=== PATIENT | female | born 1970 | race Caucasian/White ===

== ENCOUNTER 2017-12-05 09:02 | Emergency (ER) | payer OTHER ==
[~2017-12-05] VITALS: Ht 157.5 cm; Wt 52.2 kg
--- OUTSIDE RECORDS SUMMARY | 2017-12-05 09:04 | XMS REPORT | Summary of Care ---
Author Author RODGER Lemos, PEDRO Organization Unknown Address Unknown Phone Unavailable Care Team Providers Care Finance Professor Name Role Phone LUIS ALBERTO MERCEDES M.D. Unavailable Unavailable PEDRO FAJARDO M.D. Unavailable Unavailable Pedro Fajardo MD Unavailable Unavailable Unavailable Unavailable Functional Status Name Dates Details Functional status health issues are not documented Status: Name Dates Details Cognitive status health issues are not documented Status: Problems Name Dates Details Elbow pain (719.42, M25.529) Status: Active Allergic rhinitis, seasonal (477.9, J30.2) Status: Active Endometrial hyperplasia (621.30, N85.00) Status: Active Choking sensation (784.99, R09.89) Status: Active Post-operative pain (338.18, G89.18) Status: Active Dysuria (788.1, R30.0) Status: Active Screening mammogram, encounter for (V76.12, Z12.31) Status: Active Screening for osteoporosis (V82.81, Z13.820) Status: Active Estrogen deficiency (256.39, E28.39) Status: Active Premature menopause (256.31, E28.319) Status: Active Osteoporosis (733.00, M81.0) Status: Active Chest wall pain (786.52, R07.89) Status: Active Postmenopausal symptoms (627.9, N95.9) Status: Active Osteopenia (733.90, M85.80) Status: Active Chest pain (786.50, R07.9) Status: Active Anxiety (300.00, F41.9) Status: Active HTN (hypertension), benign (401.1, I10) Status: Active Medications Name Dates Details Womens 50+ Multi Vitamin/Min Oral Tablet * Start : 28-Oct-2016 Active Estradiol 1 MG Oral Tablet TAKE 1 TABLET DAILY * Quantity: 30 Refills: 5 LUIS ALBERTO MERCEDES M.D. * Start : 27-Jan-2017 Active Nicolette Low Dose 81 MG Oral Tablet Delayed Release TAKE 1 TABLET DAILY. * Refills: 0 * Start : 15-Oct-2017 Active CoQ10 400 MG Oral Capsule * Refills: 0 * Start : 15-Oct-2017 Active ALPRAZolam 1 MG Oral Tablet TAKE ONE TABLET BY MOUTH TWICE A DAY NEEDED FOR ANXIETY * Quantity: 12 Refills: 2 JONAH FAJARDO M.D.ERT * Start : 21-Oct-2017 Active Metoprolol Tartrate 25 MG Oral Tablet one tablet twice a day * Quantity: 60 Refills: 3 PEDRO FAJARDO M.D. * Start : 21-Oct-2017 Active Allergies and Adverse Reactions Name Dates Details No Known Drug Allergies (Allergy) Status: Active Procedures Procedure Dates Details History of Corneal LASIK Completed History of total hysterectomy with removal of both tubes and ovaries Completed Immunization Name Dates Details Immunizations not documented Family History Name Dates Details Family history of hypertension (V17.49, Z82.49) Status: Active Family history of High cholesterol (272.0, E78.00) Status: Active Name Dates Details Family history of skin cancer (V16.8, Z80.8) Status: Active Family history of diabetes mellitus (V18.0, Z83.3) Status: Active Family history of hypertension (V17.49, Z82.49) Status: Active Family history of High cholesterol (272.0, E78.00) Status: Active Name Dates Details Family history of Stented coronary artery (V45.82, Z95.5) Status: Active Social History Name Dates Details - Status: Name Dates Details Never smoker Vital Signs Date Test Result Details [id number] BP Systolic 169 mm[Hg] Status: Comments: Location: [facility]; Position: Sitting BP Diastolic 103 mm[Hg] Status: Comments: Location: [facility]; Position: Sitting Height 62 in Status: Weight 114.375 lb Status: Body Mass Index Calculated 20.92 kg/m2 Status: Body Surface Area Calculated 1.51 m2 Status: Heart Rate 90 /min Status: Comments: Location: [facility]; Quality: Normal [id number] BP Systolic 147 mm[Hg] Status: Comments: Location: [facility]; Position: Sitting BP Diastolic 95 mm[Hg] Status: Comments: Location: [facility]; Position: Sitting Height 62 in Status: Weight 116 lb Status: Body Mass Index Calculated 21.22 kg/m2 Status: Body Surface Area Calculated 1.52 m2 Status: Heart Rate 85 /min Status: Temperature 98.4 f Status: Comments: Method: Temporal Respiration Rate 16 /min Status: Results Date Description Value Details Results not documented Plan of Care Name Dates Details Planned Observations Planned Goals not documented Interventions Provided Medication Changes* ALPRAZolam 1 MG Oral Tablet - Start * Metoprolol Tartrate 25 MG Oral Tablet - Start Plan* given B joon and Alprzolam for chest pain and stress of sisters to return if pain persists Instructions Name Dates Details Instructions not documented Encounters Appointment; GAIL ALCAZAR M.D. Encounter Diagnosis: Problem not documented On: 26-Jan-2016 10:30 Appointment; PDERO FAJARDO M.D. Encounter Diagnosis: Problem not documented On: 28-Oct-2016 9:45 Appointment; LUIS ALBERTO MERCEDES M.D. Encounter Diagnosis: Problem not documented On: 18-Dec-2016 11:00 Appointment; LUIS ALBERTO MERCEDES M.D. Encounter Diagnosis: Problem not documented On: 09-Jan-2017 11:30 Appointment; PEDRO FAJARDO M.D. Encounter Diagnosis: Problem not documented On: 13-Jan-2017 15:30 Appointment; LUIS ALBERTO MERCEDES M.D. Encounter Diagnosis: Problem not documented On: 27-Jan-2017 10:40 Appointment; LUIS ALBERTO MERCEDES M.D. Encounter Diagnosis: Problem not documented On: 17-Feb-2017 9:20 Appointment; LUIS ALBERTO MERCEDES M.D. Encounter Diagnosis: Problem not documented On: 11-Aug-2017 9:40 Appointment; PEDRO FAJARDO M.D. Encounter Diagnosis: Problem not documented On: 15-Oct-2017 13:30 Appointment; PEDRO FAJARDO M.D. Encounter Diagnosis: Problem not documented On: 21-Oct-2017 18:30
[2017-12-05] MEDS ORDERED: LOPRESSOR25 MG PO (14:41)
== END 2017-12-05 11:36 | disposition home or self-care (01) ==
LOC: FSED 09:02
DX: M54.2 Cervicalgia (principal); S16.1XXA Strain of muscle, fascia and tendon at neck level, initial encounter; V53.6XXA Passenger in pick-up truck or van injured in collision with car, pick-up truck or van in traffic accident, initial encounter
CPT/HCPCS: 72050; 99283

== ENCOUNTER 2018-08-21 11:42 | Emergency (ER) | payer OTHER ==
[~2018-08-21] VITALS: Ht 160 cm; Wt 52.2 kg
[~2018-08-21 11:42] MED LIST: LOPRESSOR25 MG PO
--- OUTSIDE RECORDS SUMMARY | 2018-08-21 11:45 | XMS REPORT | Summary of Care ---
Author Author [facility] Organization [facility] Address Unknown Phone Unavailable Encounter HQ Encntr_alias(FIN) [id number] Date(s): 12/23/16 - 12/23/16 [facility] [address] [place] [address]- Discharge Disposition: Home or Self Care Attending Physician: John Bundy MD Referring Physician: John Bundy MD Vital Signs No data available for this section Problem List No data available for this section Allergies, Adverse Reactions, Alerts Substance Reaction Severity Status NKDA Active Medications No data available for this section Results No data available for this section Immunizations No data available for this section Procedures No data available for this section Social History Social History Type Response Smoking Status Never smoker; Exposure to Tobacco Smoke None; Cigarette Smoking Last 365 Days No; Reg Smoking Cessation Counseling No Assessment and Plan No data available for this section
--- OUTSIDE RECORDS SUMMARY | 2018-08-21 11:45 | XMS REPORT | Continuity of Care Document ---
Author Author [facility] Interface Address Unknown Phone Unavailable Problems Problem Status Onset Date Classification Date Reported Comments Source E28.39, M81.0, E28.319, Z13.820 Active 09/16/2017 [facility] N85.00=ENDOMETRIAL HYPERPLASIA, UNSPECIF Active 12/19/2016 [facility] ENDOMETRIAL HYPOPLASIA Active 12/18/2016 [facility] PRE CANCER EVALUATION Active 12/17/2016 [facility] Cervical dysplasia Active Problem 09/26/2017 [facility] Medications Medication Details Route Status Patient Instructions Ordering Provider Order Date Source ibuprofen 600 mg oral tablet 600 mg=1 tab, PO, Q6H, PRN Pain Score 1-3, # 30 tab, 0 Refill(s) Active 01/10/2017 [facility] simethicone 80 mg oral tablet 80 mg=1 tab, PO, TID-After Meals, # 60 tab, 0 Refill(s) Active 01/10/2017 [facility] Docusate Sodium 100 MG Oral Capsule [Colace] 100 mg=1 cap, PO, BID, PRN Constipation, # 20 cap, 0 Refill(s) Active 01/10/2017 [facility] Acetaminophen 325 MG / Hydrocodone Bitartrate 5 MG Oral Tablet [[place] 5/325] 1 tab, Route: PO, Drug Form: TAB, Dosing Weight 52.273, kg, Q6H, PRN Pain Score 1-3, Start date: 01/10/17 7:02:00 CDT, Duration: 30 day, Stop date: 02/09/17 7:01:00 CDTNotes: (Same as: [place] 325/5) Do not exceed 4gm/day of acetaminophen. Inactive 01/10/2017 [facility] Ibuprofen 600 mg, 1 tab, Route: PO, Drug form: TAB, Q6H, Dosing Weight 52.273, kg, PRN Pain Score 1-3, Start date: 01/10/17 7:02:00 CDT, Duration: 30 day, Stop date: 02/09/17 7:01:00 CDTNotes: (Same as: Motrin) "Do Not Crush" Take with food. Inactive 01/10/2017 [facility] neostigmine (ANES) Route: IV, Drug form: INJ, ONCE, Stop date: 01/09/17 16:09:00 CDT Inactive 01/09/2017 [facility] hydromorphone (ANES) Route: IV, Drug form: INJ, ONCE, Stop date: 01/09/17 16:09:00 CDT Inactive 01/09/2017 [facility] ketOROLAC (ANES) IV, ONCE Inactive 01/09/2017 [facility] glycopyrrolate (ANES) Route: IV, Drug form: INJ, ONCE, Stop date: 01/09/17 16:09:00 CDT Inactive 01/09/2017 [facility] ePHEDrine (ANES) Route: IV, Drug form: INJ, ONCE, Stop date: 01/09/17 16:09:00 CDT Inactive 01/09/2017 [facility] ondansetron (ANES) Route: IV, Drug form: INJ, ONCE, Stop date: 01/09/17 16:09:00 CDT Inactive 01/09/2017 [facility] Hydromorphone 15 mg, 30 mL, Route: IV, Initial Loading Dose: 0.4mg, POSTULANT Dose: 0.2 mg, POSTULANT Lockout: 10 minutes, Continuous Basal Rate: 0 mg, 4 Hour Limit (In MG): 4.8, Drug Form: INJ, Continuous, Start date: 01/09/17 16:00:00 CDT, Duration: 30 day, Stop date: ...Notes: (Same as: Dilaudid) conc=0.5 mg/ml Hydromorphone POSTULANT Dose: ;Delay: ;Basal: No Longer Active 01/09/2017 [facility] Naloxone 0.04 mg, 0.1 mL, Route: IVP, Drug form: INJ, Q2MIN, Dosing Weight 52.273, kg, PRN Narcotic Reversal, Start date: 01/09/17 15:54:00 CDT, Duration: 30 day, Stop date: 02/08/17 15:53:00 CDTNotes: Same as Narcan No Longer Active 01/09/2017 [facility] Calcium Chloride 0.0014 MEQ/ML / Potassium Chloride 0.004 MEQ/ML / Sodium Chloride 0.103 MEQ/ML / Sodium Lactate 0.028 MEQ/ML Injectable Solution 1,000 mL, Rate: 125 ml/hr, Infuse over: 8 hr, Route: IV, Dosing Weight 52.273 kg, Total Volume: 1,000, Start date: 01/09/17 15:54:00 CDT, Duration: 30 day, Stop date: 02/08/17 15:53:00 CDT No Longer Active 01/09/2017 [facility] Promethazine 6.25 mg, 0.25 mL, Route: IVPB, Drug form: INJ, ONCE, Dosing Weight 52.273, kg, PRN Nausea & Vomiting, Start date: 01/09/17 13:47:00 CDTNotes: Do not give IV push. (Same as: Phenergan) Inactive 01/09/2017 [facility] Dexamethasone 4 mg, 1 mL, Route: IVP, Drug form: INJ, ONCE, Dosing Weight 52.273, kg, PRN Nausea & Vomiting, Start date: 01/09/17 13:47:00 CDTNotes: Concentration: 4mg/ml Inactive 01/09/2017 [facility] Ondansetron 4 mg, 2 mL, Route: IVP, Drug form: INJ, ONCE, Dosing Weight 52.273, kg, PRN Nausea & Vomiting, Start date: 01/09/17 13:47:00 CDTNotes: (Same as: Zofran) MEDICATION WASTE Product Size: 4 mg Product Wasted: ___ mg Inactive 01/09/2017 [facility] Flumazenil 0.2 mg, 2 mL, Route: IVP, Drug form: INJ, PRN, Dosing Weight 52.273, kg, PRN Benzodiazepine Reversal, Initial dose, Start date: 01/09/17 13:47:00 CDT, Duration: 30 day, Stop date: 02/08/17 13:46:00 C DTNotes: (Same as: Romazicon) Inactive 01/09/2017 [facility] Oxycodone 10 mg, 2 tab, Route: PO, Drug form: TAB, Q4H, Dosing Weight 52.273, kg, PRN Pain Score 7-10, Start date: 01/09/17 13:47:00 CDT, Duration: 30 day, Stop date: 02/08/17 13:46:00 CDTNotes: (Same as: Renae mejias) Inactive 01/09/2017 [facility] Hydromorphone 0.5 mg, 0.25 mL, Route: IVP, Drug form: INJ, Q5Min, Dosing Weight 52.273, kg, PRN Pain Score 7-10, Start date: 01/09/17 13:47:00 CDT, Duration: 4 doses or times, Stop date: Limited # of timesNotes: Shwetha wymane as: Dilaudid Inactive 01/09/2017 [facility] Naloxone 0.4 mg, 1 mL, Route: IVP, Drug form: INJ, Q2MIN, Dosing Weight 52.273, kg, PRN Narcotic Reversal, Start date: 01/09/17 13:47:00 CDT, Duration: 8 doses or times, Stop date: Limited # of timesNotes: Same as Narcan Inactive 01/09/2017 [facility] rocuronium (ANES) Route: IV, Drug form: INJ, ONCE, Stop date: 01/09/17 13:14:00 CDT Inactive 01/09/2017 [facility] metroNIDAZOLE (ANES) Route: IV, Drug form: INJ, ONCE, Stop date: 01/09/17 13:09:00 CDT Inactive 01/09/2017 [facility] ceFAZolin (ANES) Route: IV, Drug form: INJ, ONCE, Stop date: 01/09/17 13:09:00 CDT Inactive 01/09/2017 [facility] scopolamine (ANES) Route: IV, Drug form: ERFILM, ONCE, Stop date: 01/09/17 13:04:00 CDT Inactive 01/09/2017 [facility] lidocaine (ANES) Route: IV, Drug form: INJ, ONCE, Stop date: 01/09/17 12:59:00 CDT Inactive 01/09/2017 [facility] propofol (ANES) Route: IV, Drug form: INJ, ONCE, Stop date: 01/09/17 12:59:00 CDT Inactive 01/09/2017 [facility] dexamethasone (ANES) Route: IV, Drug form: INJ, ONCE, Stop date: 01/09/17 12:59:00 CDT Inactive 01/09/2017 [facility] fentaNYL (ANES) Route: IV, Drug form: INJ, ONCE, Stop date: 01/09/17 12:59:00 CDT Inactive 01/09/2017 [facility] midazolam (ANES) Route: IV, Drug form: SOLN, ONCE, Stop date: 01/09/17 12:59:00 CDT Inactive 01/09/2017 [facility] ketAMINE (ANES) Route: IV, Drug form: INJ, ONCE, Stop date: 01/09/17 12:49:00 CDT Inactive 01/09/2017 [facility] acetaminophen (ANES) Route: IV, Drug form: INJ, ONCE, Stop date: 01/09/17 12:49:00 CDT Inactive 01/09/2017 [facility] sodium chloride 0.9% 50 ml INJ (ANES) + dexmedetomidine (ANES) (ANES) Route: IV, Drug form: INJ, Start date: 01/09/17 12:29:00 CDT, Stop date: 01/09/17 13:29:00 CDT Inactive 01/09/2017 [facility] LR 1000 mL INJ (ANES) Route: IV, Total Volume: 1,000, Start date: 01/09/17 11:53:00 CDT, Stop date: 01/09/17 12:53:00 CDT Inactive 01/09/2017 [facility] 72 HR Scopolamine 0.0139 MG/HR Transdermal Patch 1 patch, Route: TOP, Drug Form: ERFILM, Dosing Weight 52.273, kg, PRE OP, Start date: 01/09/17 11:00:00 CDT, Duration: 1 day, Stop date: 01/10/17 10:59:00 CDTNotes: Change patch every 72 hours (Same as: Transderm-Scop) Inactive 01/09/2017 [facility] Versed 2.5 mg, 0.5 mL, Route: PO, Drug form: SOLN, ONCE, Dosing Weight 52.273, kg, PRN Anxiety, Start date: 01/09/17 10:24:00 CDT, DosingNotes: (Same as: Versed) Inactive 01/09/2017 [facility] ceFAZolin 2 gm, 100 mL, Route: IVPB, Drug form: INJ, PRE OP, Start date: 01/09/17 0:00:00 CDT, Duration: 30 day, Stop date: 02/07/17 23:59:00 CDTNotes: Same as: Ancef Inactive 01/09/2017 [facility] Home Medication NAC-250MG PQQ-10MG, Refill(s) 0 Active 12/18/2016 [facility] CoQ10 300 mg, PO, Daily, 0 Refill(s) Active 12/18/2016 [facility] conjugated estrogens-medroxyPROGESTERone biphasic oral tablet 1 tab, PO, Daily, # 30 tab, 0 Refill(s) No Longer Active 12/18/2016 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 Comparison: None FINDINGS: The axial lumbar bone mineral density is 85% of the expected age matched bone mass with a T-score -1.4. Axial lumbar average BMD is 0.891 g/cm2. The left femoral neck bone mineral density is 81% of the expected age matched bone mass with a T-score of -1.4. Left femoral neck BMD is 0.690 g/cm2. The total femoral BMD is 0.764 g/cm2. IMPRESSION: 1. Osteopenia of the lumbar spine. 2. Osteopenia of the left femoral neck. The World Health Organization has established that OSTEOPOROSIS occurs at -2.5 or more standard deviations (SD) below peak bone mass. OSTEOPENIA (low bone mass) occurs at -1.0 standard deviations to -2.5 standard deviations below peak bone mass. SL: [id number] 09/23/2017 - - Read by: Cristhian Solorzano MD Dictated Date/time: 09/23/17 09:33 Electronically Signed by: Cristhian Solorzano MD 09/23/17 09:34 FINAL REPORT [facility] CHEM PANEL Total Protein 6.0 g/dL 6.4 - 8.4 01/10/2017 [facility] CHEM PANEL Calcium Lvl 8.0 mg/dL 8.5 - 10.5 01/10/2017 [facility] CHEM PANEL Albumin Lvl 3.0 g/dL 3.5 - 5.0 01/10/2017 [facility] CHEM PANEL AST 21 unit/L 0 - 37 01/10/2017 [facility] CHEM PANEL Bili Total 0.4 mg/dL 0.2 - 1.3 01/10/2017 [facility] CHEM PANEL Alk Phos 42 unit/L 39 - 136 01/10/2017 [facility] CHEM PANEL AGAP 11.6 meq/L 10.0 - 20.0 01/10/2017 [facility] CHEM PANEL Globulin 3.0 g/dL 2.7 - 4.2 01/10/2017 [facility] CHEM PANEL B/C Ratio 9 6 - 25 01/10/2017 [facility] CHEM PANEL ALT 14 unit/L 0 - 65 01/10/2017 [facility] CHEM PANEL A/G Ratio 1.0 0.7 - 1.6 01/10/2017 [facility] CHEM PANEL eGFR 110 mL/min/1.73m2 01/10/2017 Result Comment: The eGFR is calculated using the CKD-EPI formula. In most young, healthy individuals the eGFR will be >90 mL/min/1.73m2. The eGFR declines with age. An eGFR of 60-89 may be normal in some populations, particularly the elderly, for whom the CKD-EPI formula has not been extensively validated. Use of the eGFR is not recommended in the following populations: Individuals with unstable creatinine concentrations, including patients and those with serious co-morbid conditions. Patients with extremes in muscle mass or diet. The data above are obtained from the National Kidney Disease Education Program (NKDEP) which additionally recommends that when the eGFR is used in patients with extremes of body mass index for purposes of drug dosing, the eGFR should be multiplied by the estimated BMI. [facility] CHEM PANEL BUN 5 mg/dL 7 - 22 01/10/2017 [facility] CHEM PANEL CO2 22 meq/L 24 - 32 01/10/2017 [facility] CHEM PANEL Chloride Lvl 100 meq/L 95 - 109 01/10/2017 [facility] CHEM PANEL Potassium Lvl 3.6 meq/L 3.5 - 5.1 01/10/2017 [facility] CHEM PANEL Sodium Lvl 130 meq/L 135 - 145 01/10/2017 [facility] CHEM PANEL Creatinine Lvl 0.58 mg/dL 0.50 - 1.40 01/10/2017 [facility] CHEM PANEL Glucose Lvl 114 mg/dL 70 - 99 01/10/2017 [facility] CHEM PANEL Magnesium Lvl 1.7 mg/dL 1.8 - 2.4 01/10/2017 [facility] HEMATOLOGY RBC 3.64 M/CMM 4.20 - 5.40 01/10/2017 [facility] HEMATOLOGY WBC 10.7 K/CMM 3.7 - 10.4 01/10/2017 [facility] HEMATOLOGY RDW 14.7 % 11.5 - 14.5 01/10/2017 [facility] HEMATOLOGY MPV 8.6 fL 7.4 - 10.4 01/10/2017 [facility] HEMATOLOGY Platelet 270 K/CMM 133 - 450 01/10/2017 [facility] HEMATOLOGY MCV 81.9 fL 80.0 - 98.0 01/10/2017 [facility] HEMATOLOGY MCHC 32.6 g/dL 32.0 - 36.0 01/10/2017 [facility] HEMATOLOGY Hct 29.8 % 36.0 - 48.0 01/10/2017 [facility] HEMATOLOGY MCH 26.7 pg 27.0 - 31.0 01/10/2017 [facility] HEMATOLOGY Hgb 9.7 g/dL 12.0 - 16.0 01/10/2017 [facility] HEMATOLOGY Segs-Bands # 8.7 K/CMM 1.5 - 8.1 01/10/2017 [facility] HEMATOLOGY Basophils 0.1 % 0.0 - 1.0 01/10/2017 [facility] HEMATOLOGY Lymphocytes # 1.2 K/CMM 1.0 - 5.5 01/10/2017 [facility] HEMATOLOGY Monocytes # 0.7 K/CMM 0.0 - 0.8 01/10/2017 [facility] HEMATOLOGY Segs 82.0 % 45.0 - 75.0 01/10/2017 [facility] HEMATOLOGY Monocytes 6.8 % 2.0 - 12.0 01/10/2017 [facility] HEMATOLOGY Lymphocytes 11.1 % 20.0 - 40.0 01/10/2017 [facility] BLOOD BANK RESULTS Antibody Scrn Negative (01/09/17 9:24 AM) 01/09/2017 [facility] BLOOD BANK RESULTS ABO/Rh O POS 01/09/2017 [facility] HEMATOLOGY Lymphocytes 17.3 % 20.0 - 40.0 01/09/2017 [facility] HEMATOLOGY Eosinophils 0.4 % 0.0 - 4.0 01/09/2017 [facility] HEMATOLOGY Monocytes 7.7 % 2.0 - 12.0 01/09/2017 [facility] HEMATOLOGY Basophils 0.5 % 0.0 - 1.0 01/09/2017 [facility] HEMATOLOGY Segs-Bands # 4.9 K/CMM 1.5 - 8.1 01/09/2017 [facility] HEMATOLOGY Lymphocytes # 1.1 K/CMM 1.0 - 5.5 01/09/2017 [facility] HEMATOLOGY Segs 74.1 % 45.0 - 75.0 01/09/2017 [facility] HEMATOLOGY Monocytes # 0.5 K/CMM 0.0 - 0.8 01/09/2017 [facility] HEMATOLOGY Platelet 275 K/CMM 133 - 450 01/09/2017 [facility] HEMATOLOGY RDW 14.8 % 11.5 - 14.5 01/09/2017 [facility] HEMATOLOGY MCHC 32.8 g/dL 32.0 - 36.0 01/09/2017 [facility] HEMATOLOGY MCH 26.8 pg 27.0 - 31.0 01/09/2017 [facility] HEMATOLOGY Hgb 11.8 g/dL 12.0 - 16.0 01/09/2017 [facility] HEMATOLOGY Hct 36.1 % 36.0 - 48.0 01/09/2017 [facility] HEMATOLOGY MCV 81.8 fL 80.0 - 98.0 01/09/2017 [facility] HEMATOLOGY MPV 8.4 fL 7.4 - 10.4 01/09/2017 [facility] HEMATOLOGY WBC 6.6 K/CMM 3.7 - 10.4 01/09/2017 [facility] HEMATOLOGY RBC 4.41 M/CMM 4.20 - 5.40 01/09/2017 [facility] CHEM PANEL A/G Ratio 1.0 0.7 - 1.6 12/26/2016 [facility] CHEM PANEL Globulin 3.8 g/dL 2.7 - 4.2 12/26/2016 [facility] CHEM PANEL B/C Ratio 11 6 - 25 12/26/2016 [facility] CHEM PANEL AGAP 10.8 meq/L 10.0 - 20.0 12/26/2016 [facility] CHEM PANEL eGFR 106 mL/min/1.73m2 12/26/2016 Result Comment: The eGFR is calculated using the CKD-EPI formula. In most young, healthy individuals the eGFR will be >90 mL/min/1.73m2. The eGFR declines with age. An eGFR of 60-89 may be normal in some populations, particularly the elderly, for whom the CKD-EPI formula has not been extensively validated. Use of the eGFR is not recommended in the following populations: Individuals with unstable creatinine concentrations, including patients and those with serious co-morbid conditions. Patients with extremes in muscle mass or diet. The data above are obtained from the National Kidney Disease Education Program (NKDEP) which additionally recommends that when the eGFR is used in patients with extremes of body mass index for purposes of drug dosing, the eGFR should be multiplied by the estimated BMI. [facility] CHEM PANEL Albumin Lvl 3.9 g/dL 3.5 - 5.0 12/26/2016 [facility] CHEM PANEL Total Protein 7.7 g/dL 6.4 - 8.4 12/26/2016 [facility] CHEM PANEL Bili Total 0.2 mg/dL 0.2 - 1.3 12/26/2016 [facility] CHEM PANEL Alk Phos 65 unit/L 39 - 136 12/26/2016 [facility] CHEM PANEL AST 15 unit/L 0 - 37 12/26/2016 [facility] CHEM PANEL ALT 18 unit/L 0 - 65 12/26/2016 [facility] CHEM PANEL Calcium Lvl 9.3 mg/dL 8.5 - 10.5 12/26/2016 [facility] CHEM PANEL Potassium Lvl 4.8 meq/L 3.5 - 5.1 12/26/2016 [facility] CHEM PANEL Sodium Lvl 140 meq/L 135 - 145 12/26/2016 [facility] CHEM PANEL CO2 29 meq/L 24 - 32 12/26/2016 [facility] CHEM PANEL Chloride Lvl 105 meq/L 95 - 109 12/26/2016 [facility] CHEM PANEL BUN 7 mg/dL 7 - 22 12/26/2016 [facility] CHEM PANEL Creatinine Lvl 0.64 mg/dL 0.50 - 1.40 12/26/2016 [facility] CHEM PANEL Glucose Lvl 77 mg/dL 70 - 99 12/26/2016 [facility] CHEM PANEL Magnesium Lvl 2.2 mg/dL 1.8 - 2.4 12/26/2016 [facility] HEMATOLOGY Hct 36.3 % 36.0 - 48.0 12/26/2016 [facility] HEMATOLOGY MCV 85.2 fL 80.0 - 98.0 12/26/2016 [facility] HEMATOLOGY Hgb 11.7 g/dL 12.0 - 16.0 12/26/2016 [facility] HEMATOLOGY RBC 4.26 M/CMM 4.20 - 5.40 12/26/2016 [facility] HEMATOLOGY WBC 6.2 K/CMM 3.7 - 10.4 12/26/2016 [facility] HEMATOLOGY MCHC 32.1 g/dL 32.0 - 36.0 12/26/2016 [facility] HEMATOLOGY MCH 27.4 pg 27.0 - 31.0 12/26/2016 [facility] HEMATOLOGY MPV 8.6 fL 7.4 - 10.4 12/26/2016 [facility] HEMATOLOGY Platelet 374 K/CMM 133 - 450 12/26/2016 [facility] HEMATOLOGY RDW 14.4 % 11.5 - 14.5 12/26/2016 [facility] HEMATOLOGY Segs-Bands # 4.4 K/CMM 1.5 - 8.1 12/26/2016 [facility] HEMATOLOGY Monocytes # 0.5 K/CMM 0.0 - 0.8 12/26/2016 [facility] HEMATOLOGY Basophils 0.5 % 0.0 - 1.0 12/26/2016 [facility] HEMATOLOGY Lymphocytes # 1.2 K/CMM 1.0 - 5.5 12/26/2016 [facility] HEMATOLOGY Segs 70.9 % 45.0 - 75.0 12/26/2016 [facility] HEMATOLOGY Lymphocytes 19.9 % 20.0 - 40.0 12/26/2016 [facility] HEMATOLOGY Monocytes 8.1 % 2.0 - 12.0 12/26/2016 [facility] HEMATOLOGY Eosinophils 0.6 % 0.0 - 4.0 12/26/2016 [facility] Pelvis w Pelvis Transvaginal US Pelvis w Pelvis Transvaginal US Study: Pelvis w Pelvis Transvaginal US Clinical Indication: endometrial hyperplasia Comparison: None US PELVIS Technique: Grayscale, color and Doppler transabdominal and transvaginal imaging of the pelvis was performed with standard technique. FINDINGS: TRANSABDOMINAL PELVIC ULTRASOUND: The uterus is anteverted in position and measures 7.8 x 4.3 x 6.5 cm. At least 2 intramural fibroids are seen measuring 1.2 x 0.9 x 0.9 cm and 1 x 0.9 x 0.9 cm. TRANSVAGINAL PELVIC ULTRASOUND: The endometrial stripe is normal in appearance and measures 6 mm in thickness. Multiple anechoic right ovarian cysts are seen with largest measuring 1.5 x 1.4 x 1.3 cm. Hypoechoic 3.3 x 2.4 x 2.9 cm left ovarian cyst is seen with low-level internal echoes. Additional smaller anechoic left ovarian cysts are seen measuring 2.2 x 2.2 x 2.2 cm and 1.6 x 1.2 x 1.0 cm. The right ovary measures 3.2 x 2.2 x 2.1 cm. The left ovary measures 5.4 x 2.6 x 4.4 cm. No significant free fluid is noted in the pelvic cul-de-sac. IMPRESSION: 1. Uterine leiomyomas. 2. 3.3 x 2.4 x 2.9 cm hypoechoic left ovarian cyst with low-level internal echoes. This may represent corpus luteal or hemorrhagic ovarian cyst. However, endometrioma cannot be excluded. SL: [id number] 12/23/2016 - - Read by: Cristhian Solorzano MD Dictated Date/time: 12/23/16 14:23 Electronically Signed by: Cristhian Solorzano MD 12/23/16 14:25 FINAL REPORT [facility] Vital Signs Vital Sign Value Date Comments Source Temperature Oral (F) 98.0 F 01/10/2017 [facility] Heart Rate 89 01/10/2017 [facility] [facility] Respitory Rate 16 01/10/2017 [facility] Systolic (mm Hg) 110 01/10/2017 [facility] Diastolic (mm Hg) 69 01/10/2017 [facility] Temperature Oral (F) 97.9 F 01/10/2017 [facility] Heart Rate 74 01/10/2017 [facility] Respitory Rate 16 01/10/2017 [facility] Systolic (mm Hg) 114 01/10/2017 [facility] Diastolic (mm Hg) 64 01/10/2017 [facility] Heart Rate 70 01/10/2017 [facility] Temperature Oral (F) 98.0 F 01/10/2017 [facility] Systolic (mm Hg) 108 01/10/2017 [facility] Diastolic (mm Hg) 65 01/10/2017 [facility] Respitory Rate 16 01/10/2017 [facility] Weight 52.273 12/26/2016 [facility] Height 160.02 cm 12/26/2016 [facility] BMI Calculated 20.41 12/26/2016 [facility] BMI Calculated 20.41 12/26/2016 [facility] Weight 52.273 12/26/2016 [facility] Height 160.02 cm 12/26/2016 [facility] Weight 52.5 12/18/2016 [facility] BMI Calculated 20.5 12/18/2016 [facility] Height 160.02 cm 12/18/2016 [facility] Temperature Oral (F) 97.6 F 12/18/2016 [facility] Respitory Rate 18 12/18/2016 [facility] Heart Rate 85 12/18/2016 [facility] Systolic (mm Hg) 163 12/18/2016 [facility] Diastolic (mm Hg) 105 12/18/2016 [facility] Encounters Location Location Details Encounter Type Encounter Number Reason For Visit Attending Provider ADM Date DC Date Status Source [facility] Recurring [id number] John Diop III 12/18/2016 01/17/2017 [facility] Outpatient [id number] John Diop III 12/23/2016 12/24/2016 [facility] Bedded Outpatient [id number] John Diop III 01/09/2017 01/10/2017 [facility] Outpatient [id number] John Diop III 09/23/2017 09/24/2017 [facility] Procedures Procedure Code Date Perfomer Comments Source Teeth operation [id number] [facility] Teeth operation [id number] [facility]
--- OUTSIDE RECORDS SUMMARY | 2018-08-21 11:45 | XMS REPORT | Summary of Care ---
Author Author [facility] Organization [facility] Address Unknown Phone Unavailable Encounter JEREMY Carey(RIA) [id number] Date(s): 01/09/17 - 01/10/17 [facility] [address] [employer] provided by [employer] [facility] [employer] [facility] [employer] [place] [address]- Discharge Disposition: Home or Self Care Attending Physician: John Bundy MD Referring Physician: John Bundy MD Vital Signs 1 2 3 Most recent to oldest [Reference Range]: 160.02 cm (12/26/16 1:30 PM) 160.02 cm (12/26/16 1:25 PM) Height 98.0 DegF (01/10/17 8:43 AM) 97.9 DegF (01/10/17 4:00 AM) 98.0 DegF (01/10/17 1:14 AM) Temperature Oral [96.4-99.1 DegF] 110/69 mmHg (01/10/17 8:43 AM) 114/64 mmHg (01/10/17 4:00 AM) 108/65 mmHg (01/10/17 1:14 AM) Blood Pressure [90-140/60-90 mmHg] 16 BRMIN (01/10/17 8:43 AM) 16 BRMIN (01/10/17 4:00 AM) 16 BRMIN (01/10/17 1:14 AM) Respiratory Rate [14-20 BRMIN] 89 bpm (01/10/17 8:43 AM) 74 bpm (01/10/17 4:00 AM) 70 bpm (01/10/17 1:14 AM) Peripheral Pulse Rate [60-100 bpm] 52.273 kg (12/26/16 1:30 PM) 52.273 kg (12/26/16 1:25 PM) Weight 20.41 m2 (12/26/16 1:30 PM) 20.41 m2 (12/26/16 1:25 PM) Body Mass Index Problem List Condition Effective Dates Status Health Status Informant Cervical Active dysplasia(Confirmed) Allergies, Adverse Reactions, Alerts Substance Reaction Severity Status NKDA Active Medications acetaminophen (ANES) Route: IV, Drug form: INJ, ONCE, Stop date: 01/09/17 12:49:00 CDT Start Date: 01/09/17 Stop Date: 01/09/17 Status: Completed ANES dexamethasone 4 mg, 1 mL, Route: IVP, Drug form: INJ, ONCE, Dosing Weight 52.273, kg, PRN Naus ea & Vomiting, Start date: 01/09/17 13:47:00 CDT Notes: Concentration: 4mg/ml Start Date: 01/09/17 Stop Date: 01/09/17 Status: Discontinued ANES flumazenil 0.2 mg, 2 mL, Route: IVP, Drug form: INJ, PRN, Dosing Weight 52.273, kg, PRN Seth zodiazepine Reversal, Initial dose, Start date: 01/09/17 13:47:00 CDT, Duration: 30 day, Stop date: 02/08/17 13:46:00 CDT Notes: (Same as: Romazicon) Start Date: 01/09/17 Stop Date: 01/09/17 Status: Discontinued ANES HYDROmorphone 0.5 mg, 0.25 mL, Route: IVP, Drug form: INJ, Q5Min, Dosing Weight 52.273, kg, TN N Pain Score 7-10, Start date: 01/09/17 13:47:00 CDT, Duration: 4 doses or times , Stop date: Limited # of times Notes: Same as: Dilaudid Start Date: 01/09/17 Stop Date: 01/09/17 Status: Discontinued ANES naloxone 0.4 mg, 1 mL, Route: IVP, Drug form: INJ, Q2MIN, Dosing Weight 52.273, kg, PRN N arcotic Reversal, Start date: 01/09/17 13:47:00 CDT, Duration: 8 doses or times, Stop date: Limited # of times Notes: Same as Narcan Start Date: 01/09/17 Stop Date: 01/09/17 Status: Discontinued ANES ondansetron 4 mg, 2 mL, Route: IVP, Drug form: INJ, ONCE, Dosing Weight 52.273, kg, PRN Naus ea & Vomiting, Start date: 01/09/17 13:47:00 CDT Notes: (Same as: Zofran) MEDICATION WASTE Product Size: 4 mgProduct Was jon: ___ mg Start Date: 01/09/17 Stop Date: 01/09/17 Status: Discontinued ANES oxyCODONE 10 mg, 2 tab, Route: PO, Drug form: TAB, Q4H, Dosing Weight 52.273, kg, PRN Pain Score 7-10, Start date: 01/09/17 13:47:00 CDT, Duration: 30 day, Stop date: 13:46:00 CDT Notes: (Same as: Roxicodone) Start Date: 01/09/17 Stop Date: 01/09/17 Status: Discontinued ANES oxyCODONE 5 mg, 1 tab, Route: PO, Drug form: TAB, Q4H, Dosing Weight 52.273, kg, PRN Pain Score 4-6, Start date: 01/09/17 13:47:00 CDT, Duration: 30 day, Stop date: 02/08 13:46:00 CDT Notes: (Same as: Roxicodone) Start Date: 01/09/17 Stop Date: 01/09/17 Status: Discontinued ANES promethazine 6.25 mg, 0.25 mL, Route: IVPB, Drug form: INJ, ONCE, Dosing Weight 52.273, kg, P RN Nausea & Vomiting, Start date: 01/09/17 13:47:00 CDT Notes: Do not give IV push. (Same as: Phenergan) Start Date: 01/09/17 Stop Date: 01/09/17 Status: Discontinued ceFAZolin 2 gm, 100 mL, Route: IVPB, Drug form: INJ, PRE OP, Start date: 01/09/17 0:00:00 CDT, Duration: 30 day, Stop date: 02/07/17 23:59:00 CDT Notes: Same as: Ancef Start Date: 01/09/17 Stop Date: 01/09/17 Status: Completed ceFAZolin (ANES) Route: IV, Drug form: INJ, ONCE, Stop date: 01/09/17 13:09:00 CDT Start Date: 01/09/17 Stop Date: 01/09/17 Status: Completed Colace 100 mg oral capsule 100 mg=1 cap, PO, BID, PRN Constipation, # 20 cap, 0 Refill(s) Start Date: 01/10/17 Status: Ordered dexamethasone (ANES) Route: IV, Drug form: INJ, ONCE, Stop date: 01/09/17 12:59:00 CDT Start Date: 01/09/17 Stop Date: 01/09/17 Status: Completed ePHEDrine (ANES) Route: IV, Drug form: INJ, ONCE, Stop date: 01/09/17 16:09:00 CDT Start Date: 01/09/17 Stop Date: 01/09/17 Status: Completed fentaNYL (ANES) Route: IV, Drug form: INJ, ONCE, Stop date: 01/09/17 12:59:00 CDT Start Date: 01/09/17 Stop Date: 01/09/17 Status: Completed glycopyrrolate (ANES) Route: IV, Drug form: INJ, ONCE, Stop date: 01/09/17 16:09:00 CDT Start Date: 01/09/17 Stop Date: 01/09/17 Status: Completed hydromorphone (ANES) Route: IV, Drug form: INJ, ONCE, Stop date: 01/09/17 16:09:00 CDT Start Date: 01/09/17 Stop Date: 01/09/17 Status: Completed HYDROmorphone IT TEACHER 0.5mg/ml 30ml INJ 15 mg 15 mg, 30 mL, Route: IV, Initial Loading Dose: 0.4mg, IT TEACHER Dose: 0.2 mg, IT TEACHER Lock out: 10 minutes, Continuous Basal Rate: 0 mg, 4 Hour Limit (In MG): 4.8, Drug Fo rm: INJ, Continuous, Start date: 01/09/17 16:00:00 CDT, Duration: 30 day, Stop d ate: ... Notes: (Same as: Dilaudid) conc=0.5 mg/mlHydromorphone IT TEACHER Dose: ;Delay: ;Basal: Start Date: 01/09/17 Stop Date: 01/10/17 Status: Discontinued ibuprofen 600 mg, 1 tab, Route: PO, Drug form: TAB, Q6H, Dosing Weight 52.273, kg, PRN Clare n Score 1-3, Start date: 01/10/17 7:02:00 CDT, Duration: 30 day, Stop date: 01/27 01/13 7:01:00 CDT Notes: (Same as: Motrin)"Do Not Crush" Take with food. Start Date: 01/10/17 Stop Date: 01/10/17 Status: Discontinued ibuprofen 600 mg oral tablet 600 mg=1 tab, PO, Q6H, PRN Pain Score 1-3, # 30 tab, 0 Refill(s) Start Date: 01/10/17 Stop Date: 02/09/17 Status: Ordered ketAMINE (ANES) Route: IV, Drug form: INJ, ONCE, Stop date: 01/09/17 12:49:00 CDT Start Date: 01/09/17 Stop Date: 01/09/17 Status: Completed ketOROLAC (ANES) IV, ONCE Start Date: 01/09/17 Stop Date: 01/09/17 Status: Completed Lactated Ringers 1,000 mL 1,000 mL, Rate: 125 ml/hr, Infuse over: 8 hr, Route: IV, Dosing Weight 52.273 kg , Total Volume: 1,000, Start date: 01/09/17 15:54:00 CDT, Duration: 30 day, Stop date: 02/08/17 15:53:00 CDT Start Date: 01/09/17 Stop Date: 01/10/17 Status: Discontinued lidocaine (ANES) Route: IV, Drug form: INJ, ONCE, Stop date: 01/09/17 12:59:00 CDT Start Date: 01/09/17 Stop Date: 01/09/17 Status: Completed LR 1000 mL INJ (ANES) Route: IV, Total Volume: 1,000, Start date: 01/09/17 11:53:00 CDT, Stop date: 12:53:00 CDT Start Date: 01/09/17 Stop Date: 01/09/17 Status: Completed metroNIDAZOLE (ANES) Route: IV, Drug form: INJ, ONCE, Stop date: 01/09/17 13:09:00 CDT Start Date: 01/09/17 Stop Date: 01/09/17 Status: Completed midazolam (ANES) Route: IV, Drug form: SOLN, ONCE, Stop date: 01/09/17 12:59:00 CDT Start Date: 01/09/17 Stop Date: 01/09/17 Status: Completed naloxone 0.04 mg, 0.1 mL, Route: IVP, Drug form: INJ, Q2MIN, Dosing Weight 52.273, kg, TN N Narcotic Reversal, Start date: 01/09/17 15:54:00 CDT, Duration: 30 day, Stop d ate: 02/08/17 15:53:00 CDT Notes: Same as Narcan Start Date: 01/09/17 Stop Date: 01/10/17 Status: Discontinued neostigmine (ANES) Route: IV, Drug form: INJ, ONCE, Stop date: 01/09/17 16:09:00 CDT Start Date: 01/09/17 Stop Date: 01/09/17 Status: Completed Dora 5/325 oral tablet 1 tab, Route: PO, Drug Form: TAB, Dosing Weight 52.273, kg, Q6H, PRN Pain Score 1-3, Start date: 01/10/17 7:02:00 CDT, Duration: 30 day, Stop date: 02/09/17 7:0 1:00 CDT Notes: (Same as: Dora 325/5) Do not exceed 4gm/day of acetaminophen. Start Date: 01/10/17 Stop Date: 01/10/17 Status: Discontinued ondansetron (ANES) Route: IV, Drug form: INJ, ONCE, Stop date: 01/09/17 16:09:00 CDT Start Date: 01/09/17 Stop Date: 01/09/17 Status: Completed propofol (ANES) Route: IV, Drug form: INJ, ONCE, Stop date: 01/09/17 12:59:00 CDT Start Date: 01/09/17 Stop Date: 01/09/17 Status: Completed rocuronium (ANES) Route: IV, Drug form: INJ, ONCE, Stop date: 01/09/17 13:14:00 CDT Start Date: 01/09/17 Stop Date: 01/09/17 Status: Completed scopolamine (ANES) Route: IV, Drug form: ERFILM, ONCE, Stop date: 01/09/17 13:04:00 CDT Start Date: 01/09/17 Stop Date: 01/09/17 Status: Completed scopolamine 1.5 mg transdermal film 1 patch, Route: TOP, Drug Form: ERFILM, Dosing Weight 52.273, kg, PRE OP, Start date: 01/09/17 11:00:00 CDT, Duration: 1 day, Stop date: 01/10/17 10:59:00 CDT Notes: Change patch every 72 hours (Same as: Transderm-Scop) Start Date: 01/09/17 Stop Date: 01/09/17 Status: Completed simethicone 80 mg oral tablet 80 mg=1 tab, PO, TID-After Meals, # 60 tab, 0 Refill(s) Start Date: 01/10/17 Stop Date: 02/09/17 Status: Ordered sodium chloride 0.9% 50 ml INJ (ANES) + dexmedetomidine (ANES) (ANES) Route: IV, Drug form: INJ, Start date: 01/09/17 12:29:00 CDT, Stop date: 7 13:29:00 CDT Start Date: 01/09/17 Stop Date: 01/09/17 Status: Completed Versed 2.5 mg, 0.5 mL, Route: PO, Drug form: SOLN, ONCE, Dosing Weight 52.273, kg, PRN Anxiety, Start date: 01/09/17 10:24:00 CDT, Dosing Notes: (Same as: Versed) Start Date: 01/09/17 Stop Date: 01/09/17 Status: Completed Results BLOOD BANK RESULTS 1 2 3 Most recent to oldest [Reference Range]: O POS *Unknown* (01/09/17 9:24 AM) ABO/Rh Negative (01/09/17 9:24 AM) Antibody Scrn ELECTROLYTES 1 2 3 Most recent to oldest [Reference Range]: 130 mEq/L *LOW* (01/10/17 1:13 AM) 140 mEq/L (12/26/16 9:00 AM) Sodium Lvl [135-145 mEq/L] 3.6 mEq/L (01/10/17 1:13 AM) 4.8 mEq/L (12/26/16 9:00 AM) Potassium Lvl [3.5-5.1 mEq/L] 100 mEq/L (01/10/17:13 AM) 105 mEq/L (12/26/16 9:00 AM) Chloride Lvl [95-109 mEq/L] 22 mEq/L *LOW* (01/10/17: AM) 29 mEq/L (12/26/16 9:00 AM) CO2 [24-32 mEq/L] 11.6 mEq/L (01/10/17: AM) 10.8 mEq/L (12/26/16 9:00 AM) AGAP [10.0-20.0 mEq/L] CHEM PANEL 1 2 3 Most recent to oldest [Reference Range]: 0.58 mg/dL (01/10/17: AM) 0.64 mg/dL (12/26/16 9:00 AM) Creatinine Lvl [0.50-1.40 mg/dL] 110 mL/min/1.73m2 1 *NA* (01/10/17: AM) 106 mL/min/1.73m2 2 *NA* (12/26/16 9:00 AM) eGFR 5 mg/dL *LOW* (01/10/17: AM) 7 mg/dL (12/26/16 9:00 AM) BUN [7-22 mg/dL] 9 (01/10/17 1:13 AM) 11 (12/26/16 9:00 AM) B/C Ratio [6-25] 114 mg/dL *HI* (01/10/17: AM) 77 mg/dL (12/26/16 9:00 AM) Glucose Lvl [70-99 mg/dL] 6.0 g/dL *LOW* (01/10/17:13 AM) 7.7 g/dL (12/26/16 9:00 AM) Total Protein [6.4-8.4 g/dL] 3.0 g/dL *LOW* (01/10/17: AM) 3.9 g/dL (12/26/16 9:00 AM) Albumin Lvl [3.5-5.0 g/dL] 3.0 g/dL (01/10/17 1:13 AM) 3.8 g/dL (12/26/16 9:00 AM) Globulin [2.7-4.2 g/dL] 1.0 (01/10/17 1:13 AM) 1.0 (12/26/16 9:00 AM) A/G Ratio [0.7-1.6] 8.0 mg/dL *LOW* (01/10/17 1:13 AM) 9.3 mg/dL (12/26/16 9:00 AM) Calcium Lvl [8.5-10.5 mg/dL] 1.7 mg/dL *LOW* (01/10/17 1:13 AM) 2.2 mg/dL (12/26/16 9:00 AM) Magnesium Lvl [1.8-2.4 mg/dL] 14 unit/L (01/10/17 1:13 AM) 18 unit/L (12/26/16 9:00 AM) ALT [0-65 unit/L] 21 unit/L (01/10/17 1:13 AM) 15 unit/L (12/26/16 9:00 AM) AST [0-37 unit/L] 42 unit/L (01/10/17 1:13 AM) 65 unit/L (12/26/16 9:00 AM) Alk Phos [39-136 unit/L] 0.4 mg/dL (01/10/17 1:13 AM) 0.2 mg/dL (12/26/16 9:00 AM) Bili Total [0.2-1.3 mg/dL] 1Result Comment: The eGFR is calculated using the [...] from the National Kidney Disease Education Program ( NKDEP) which additionally recommends that when the eGFR is used in patients with extremes of body mass index for purposes of drug dosing, the eGFR should be mul tiplied by the estimated BMI. 2Result Comment: The eGFR is calculated using the [...] from the National Kidney Disease Education Program ( NKDEP) which additionally recommends that when the eGFR is used in patients with extremes of body mass index for purposes of drug dosing, the eGFR should be mul tiplied by the estimated BMI. HEMATOLOGY 1 2 3 Most recent to oldest [Reference Range]: 10.7 K/CMM *HI* (01/10/17:13 AM) 6.6 K/CMM (01/09/17 9:24 AM) 6.2 K/CMM (12/26/16 9:00 AM) WBC [3.7-10.4 K/CMM] 3.64 M/CMM *LOW* (01/10/17:13 AM) 4.41 M/CMM (01/09/17 9:24 AM) 4.26 M/CMM (12/26/16 9:00 AM) RBC [4.20-5.40 M/CMM] 9.7 g/dL *LOW* (01/10/17:13 AM) 11.8 g/dL *LOW* (01/09/17:24 AM) 11.7 g/dL *LOW* (12/26/16 9:00 AM) Hgb [12.0-16.0 g/dL] 29.8 % *LOW* (01/10/17:13 AM) 36.1 % (01/09/17 9:24 AM) 36.3 % (12/26/16 9:00 AM) Hct [36.0-48.0 %] 81.9 fL (01/10/17:13 AM) 81.8 fL (01/09/17 9:24 AM) 85.2 fL (12/26/16 9:00 AM) MCV [80.0-98.0 fL] 26.7 pg *LOW* (01/10/17:13 AM) 26.8 pg *LOW* (01/09/17:24 AM) 27.4 pg (12/26/16 9:00 AM) MCH [27.0-31.0 pg] 32.6 g/dL (01/10/17:13 AM) 32.8 g/dL (01/09/17:24 AM) 32.1 g/dL (12/26/16 9:00 AM) MCHC [32.0-36.0 g/dL] 14.7 % *HI* (01/10/17:13 AM) 14.8 % *HI* (01/09/17:24 AM) 14.4 % (12/26/16 9:00 AM) RDW [11.5-14.5 %] 270 K/CMM (01/10/17:13 AM) 275 K/CMM (01/09/17:24 AM) 374 K/CMM (12/26/16 9:00 AM) Platelet [133-450 K/CMM] 8.6 fL (01/10/17:13 AM) 8.4 fL (01/09/17:24 AM) 8.6 fL (12/26/16 9:00 AM) MPV [7.4-10.4 fL] 82.0 % *HI* (01/10/17:13 AM) 74.1 % (01/09/17:24 AM) 70.9 % (12/26/16 9:00 AM) Segs [45.0-75.0 %] 11.1 % *LOW* (01/10/17:13 AM) 17.3 % *LOW* (01/09/17:24 AM) 19.9 % *LOW* (12/26/16 9:00 AM) Lymphocytes [20.0-40.0 %] 6.8 % (01/10/17:13 AM) 7.7 % (01/09/17 9:24 AM) 8.1 % (12/26/16 9:00 AM) Monocytes [2.0-12.0 %] 0.4 % (01/09/17 9:24 AM) 0.6 % (12/26/16 9:00 AM) Eosinophils [0.0-4.0 %] 0.1 % (01/10/17 1:13 AM) 0.5 % (01/09/17 9:24 AM) 0.5 % (12/26/16 9:00 AM) Basophils [0.0-1.0 %] 8.7 K/CMM *HI* (01/10/17 1:13 AM) 4.9 K/CMM (01/09/17 9:24 AM) 4.4 K/CMM (12/26/16 9:00 AM) Segs-Bands # [1.5-8.1 K/CMM] 1.2 K/CMM (01/10/17 1:13 AM) 1.1 K/CMM (01/09/17 9:24 AM) 1.2 K/CMM (12/26/16 9:00 AM) Lymphocytes # [1.0-5.5 K/CMM] 0.7 K/CMM (01/10/17 1:13 AM) 0.5 K/CMM (01/09/17 9:24 AM) 0.5 K/CMM (12/26/16 9:00 AM) Monocytes # [0.0-0.8 K/CMM] Immunizations No data available for this section Procedures Procedure Date Related Diagnosis Body Site Teeth operation Social History Social History Type Response Smoking Status Never smoker; Exposure to Tobacco Smoke None; Cigarette Smoking Last 365 Days No; Reg Smoking Cessation Counseling No Assessment and Plan Extracted from: Title: MOLECULAR BIOLOGY SCIENTIST ONC POP Check Note Author: Ramirez Cordero MD Date: 01/09/17 R2 Post-Operative Check Progress Note S: Pt has no new complaints. She is not ambulating and voiding freely 2/[address] Tolerataing CLD. Denies HAs, SOB, chest pain, nausea, vomitting, dizziness, numbness, and tingling. Pain is well controlled and bleeding has been normal. O: Physical Examination: VitalsTmp(F)Tmp(C)[id number] 01/09 20:0298.737.30doji96/54---[id number]------ 01/09 17:3098.136.95ocga359/78---[id number]------ 01/09 17:0099.237.91uldp778/[id number]------ 01/09 16:45 [id number]------ 01/09 16:30 [id number]------ 24 Hr Tmax: 99.2F (37.33c) at 01/09 17:0024 Hr Tmin: 97.2F (36.22c) at 01/09 08:45 36 Hr Tmax: 99.2F (37.33c) at 01/09 17:0036 Hr Tmin: 97.2F (36.22c) at 01/09 08:45 Vital Signs are the last 5 in the past 48 hours. Weights are the last 5 in 60 days, plus initial. DateWt(kg)Wt(lb)Ht(cm)Ht(in)MethodBMIBSA 12/26 (initial) 52.27 [id number] 63.00Measured 20.41.52 General: Pt in no acute distress. CVS: RRR, no murmurs, rubs or gallops. Lung: CTAB Abdomen: incisions C/D/I, soft, NTTP Extremeties: No calf tenderness; no edema UOP: ~125 cc/hr since surgery A/P: 46 yo G0, with no PMH, s/p RA-TLH and BSO 2/2 h/o atypical endometrial hyperplasia. 1. POD 0 - Heme: 11.8--> EBL 100 cc --> pending in AM - Pain: Dilaudid IT TEACHER - Diet: CLD overnight; ADAT in AM - UOP: adequate; plan to D/C in AM - Dispo: continue POP advances and plan for D/C POD 2/3. Ramirez Cordero MD [facility], [address] [facility] [place] Extracted from: Title: GYNECOLOGY ONCOLOGY Author: John Bundy MD Date: 4/13/17 GYNECOLOGY ONCOLOGY HISTORY & PHYSICAL DATE: 01/09/2017 CC: Scheduled surgery HPI: Ms. Singh is a 46 yo WF G0 w AUB and uterine "pre-cancer" who presents to clinic for evaluation. Pt reports menarche @ 13 yo w regular menses lasting 4-6 days. Pt states that she has had no changes in her menses until September of this year. Pt reports heavy vaginal bleeding that started 10/26/2016 prompting a visit to the woodworking machine feeder, Dr. Carey (sp?). Pt was seen by woodworking machine feeder on 11/20/2016 a t which point an EMB was performed and patient was started on oral provera 10mg qd w decrease in VB and eventual cessation. Pt was told by her woodworking machine feeder that EMB was consistent with uterine pre-cancer and was referred here for further management. Pt otherwise has no complaints, denies dizziness/SOB/heart palpitations/pain. ECOG Performance Status 0. Karnofsky score 100%. OBHx: G0 GynHx: R/4-5 Denies h/o OCPs / HRT Last pap 09/10/2017 - ASCUS neg HRHPV, denies h/o abnl Last MMG wnl (per pt report) - 09/09/2016, denies h/o abnl Denies h/o colonoscopy. Contraception - Vasectomy PMHx. Denies PSHx: Lasik eye Meds. Provera 10mg qd, OTC multivitamins All. NKDA FHx. Maternal aunt w ovarian ca @ 30 yo, maternal cousin w breast ca @ 55 yo, father w skin cancer/HTN/T2DM, PGF w throat ca, MGF w prostate ca, Mother w heart disease, brother w heart disease, MGM w heart disease SHx: Denies tob/alc/drug use. 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 REVIEW OF SYSTEMS: CONSTITUTIONAL: Patient denies any fevers, chills, fatigue, changes in weight Eyes: Patient denies any visual changes, pain, deficits in field of vision, double vision ENT/Mouth: Denies mouth ulcers, URI sx, difficulty swallowing. CARDIOVASCULAR: Patient denies chest pain, orthopnea, dyspnea on exertion, palpitations. RESPIRATORY: Patient denies shortness of breath, wheezing or pleurisy GASTROINTESTINAL: Denies nausea/vomiting, diarrhea, bloody stool, constipation. : Denies hematuria, dysuria, urinary frequency, incontinence, vaginal discharge, vaginal bleeding, dyspareunia MUSCULOSKELETAL: Denies muscle pain, muscle weakness, difficulty walking, decreased range of motion. ENDOCRINE: Denies polyuria, polydipsia, hair loss, hirsutism, hot flashes, mood swings, night sweats. HEMATOLOGY/LYMPH: Denies bruises, bleeding, adenopathy SKIN: Denies rashes/ulcucers NEUROLOGICAL. Denies syncope, seizures, stroke, neuropathy. PSYCHIATRIC: Denies depression/anxiety/hospitalizations ALLERG/IMUNOL: Denies frequent illness, sneezing, congestion PE: VitalsTmp(F)[id number] VitalsTmp(F)Tmp(C)[id number] 01/09 08:4597.236.54hstb698/89---[id number]------ Neurologic/Psych: Alert and oriented x3, mood & affect stable, CN 2-12 grossly intact Neck: No neck masses, trachea symmetrical, thyroid normal in size, no masses/nodules/tenderness Resp: Good respiratory effort, lungs clear to auscultation bilaterally CV: RRR, no m/r/g, peripheral pulses present Abd: Soft, NT, ND, no masses palpated, no tenderness, no hepatosplenomegaly, no lympadenopathy in neck/axilla Abdominal skin, no rashes/lesions/ulcers Breasts: Equal bilaterally, no skin dimpling, no masses palpated, no axillary lymphadenopathy Pelvic: normal external female genitalia, pink mucosa, normal appearing urethral meatus and urethra, base of bladder normal in appearance, normal appearing cervix that is 2x2 cm w no lesions, uterus small and retroverted, no adnexal masses palpated, no vaginal masses palpated Labs: 09/11/2016 WBC 5.70 > Hb 12.8 / Hct 38.4 < Plts 243 TProt 6.9 / Alb 4.5 / TBili 0.3 / AST 21 / ALT 12 < AlkP 63 TSH 1.730 Imagin12/23/2016 The uterus is anteverted in position and measures 7.8 x 4.3 x 6.5 cm. At least 2 intramural fibroids are seen measuring 1.2 x 0.9 x 0.9 cm and 1 x 0.9 x 0.9 cm. The endometrial stripe is normal in appearance [...] measures 5.4 x 2.6 x 4.4 cm. IMPRESSION: 1. Uterine leiomyomas. 2. 3.3 x 2.4 x 2.9 cm hypoechoic left ovarian cyst with low-level internal echoes. This may represent corpus luteal or hemorrhagic ovarian cyst. However, endometrioma cannot be excluded. A/P: 46 yo WF G0 w suspected endometrial hyperplasia 1. Suspected endometrial hyperplasia. Patient w h/o AUB and reports "pre-cancer" on EMB. Pt states ultrasound w thickened endometrial stripe. On 12/23/16 ultrasound EMB of 6 mm with some intramural fibroids largest measuring <1 cm. --Plan for robotic assisted laparoscopic vaginal hysterectomy, bilateral salpingo- oophorectomy, pelvic & para-aortic lyphadenectomy, appendectomy, possible exploratorly laparotomy w total abdominal hysterectomy, and all other indicated procedures. Patient was counseled regarding risks of surgery including risk of bleeding, possibly to anemia requiring blood transfusion, infection, damage to surrounding structures including but not limited to bowel, bladder, arteries, nerves, veins, risk of sterility and menopause, and risk of DVT. Patient expressed understanding and desires to proceed. 2. HCM. --Last pap 09/10/2017 - ASCUS neg HRHPV --Last MMG wnl (per pt report) - 09/09/2016 3. Blood pressure: Elevated during clinic visit. Disposition: Risks and benefits of procedure reviewed today. All questions answered. Patient verified procedure. Consents confirmed. Proceed with surgery. Matilde Gipson MD PGY-4
--- OUTSIDE RECORDS SUMMARY | 2018-08-21 11:46 | XMS REPORT | Summary of Care ---
Author Author RODGER Lemos, PEDRO Organization Unknown Address Unknown Phone Unavailable Care Team Providers Care Senior Lead Software Engineer Name Role Phone LUIS ALBERTO MERCEDES M.D. [...] smoker Vital Signs Date Test Result Details [id number] BP Systolic 169 mm[Hg] Status: Comments: Location: [facility] [place]; Position: Sitting BP Diastolic 103 mm[Hg] Status: Comments: Location: [facility] [place]; Position: Sitting Height 62 in Status: Weight 114.375 lb Status: Body Mass Index Calculated 20.92 kg/m2 Status: Body Surface Area Calculated 1.51 m2 Status: Heart Rate 90 /min Status: Comments: Location: [facility]; Quality: Normal [id number] BP Systolic 147 mm[Hg] Status: Comments: Location: [...] Problem not documented On: 26-Jan-2016 10:30 Appointment; PEDRO FAJARDO M.D. Encounter Diagnosis: Problem [...]
--- OUTSIDE RECORDS SUMMARY | 2018-08-21 11:46 | XMS REPORT | Summary of Care ---
Author Author [facility] Organization [facility] Address Unknown Phone Unavailable Encounter HQ Encntr_alias(FIN) [id number] Date(s): 09/23/17 - 09/23/17 [facility] [address] [place] [address]- Discharge Disposition: Home or Self Care Attending Physician: John Bundy MD Referring Physician: John Bundy MD Vital Signs No data available for this section Problem List Condition Effective Dates Status Health [...]
--- OUTSIDE RECORDS SUMMARY | 2018-08-21 11:46 | XMS REPORT | Summary of Care ---
Author Author [facility] Organization [facility] Address Unknown Phone Unavailable Encounter JEREMY Carey(RIA) [id number] Date(s): 12/18/16 - 01/16/17 [facility] [address] [place], [place] [address] [phone] Discharge Disposition: Home or Self Care Attending Physician: John Bundy MD Referring Physician: John Bundy MD Vital Signs Most recent to 1 oldest [Reference Range]: Height 160.02 cm (12/18/16 12:19 PM) Temperature Oral 97.6 DegF [96.4-99.1 DegF] (12/18/16 12:19 PM) Blood Pressure 163/105 mmHg [90-140/60-90 mmHg] *HI* (12/18/16 12:19 PM) Respiratory Rate 18 BRMIN [14-20 BRMIN] (12/18/16 12:19 PM) Peripheral Pulse 85 bpm Rate [60-100 bpm] (12/18/16 12:19 PM) Weight 52.5 kg (12/18/16 12:19 PM) Body Mass Index 20.5 m2 (12/18/16 12:19 PM) Problem List Condition Effective Dates Status Health Status Informant Cervical Active dysplasia(Confirmed) Allergies, Adverse Reactions, Alerts Substance Reaction Severity Status NKDA Active Medications conjugated estrogens-medroxyPROGESTERone biphasic oral tablet 1 tab, PO, Daily, # 30 tab, 0 Refill(s) Start Date: 12/18/16 Stop Date: 01/10/17 Status: Discontinued CoQ10 300 mg, PO, Daily, 0 Refill(s) Start Date: 12/18/16 Status: Ordered Home Medication NAC-250MG PQQ-10MG, Refill(s) 0 Start Date: 12/18/16 Status: Ordered Home Medication Refill(s) 0 Start Date: 12/18/16 Stop Date: 12/18/16 Status: Deleted Results No data available for this section [...]
[2018-08-21] MEDS: DIPHTH/TETANUS/ACEL. PERTUSSIS 0.5 ML SYR IM ONE ×2 (12:24→13:10)
--- NOTE | 2018-08-21 12:43 | Diagnostic Imaging Report ---
CT [facility] HISTORY: Fall, dizziness COMPARISON: None. TECHNIQUE: Noncontrast axial scans were obtained from skull base to the vertex. Coronal and sagittal reconstructions obtained from the axial data. One or more of the following dose reduction techniques were used: Automated exposure control, adjustment of the mA and/or kV according to patient size, and/or utilization of iterative reconstruction technique. DISCUSSION: Scalp/Skull: Unremarkable. Brain sulci: Appropriate for patient's age. Ventricles: Normal in size and configuration. No hydrocephalus. Extra-axial spaces: No masses or fluid collections. Parenchyma: No abnormal densities. No masses, hemorrhage, or large vascular territory acute infarct. Dural sinuses: No abnormal densities. Sellar/Suprasellar region: Intact. Skull base: Intact. Incidental findings: There is minimal ethmoid air cell mucosal thickening. IMPRESSION: No intracranial abnormalities. Signed by: Dr. Loco Riggins M.D. on 08/21/2018 12:40 PM
--- NOTE | 2018-08-21 13:16 | Diagnostic Imaging Report ---
Right hand 3 views HISTORY: Pain. Fall. Abrasion COMPARISON: None FINDINGS: No displaced fracture. Osseous alignment is within normal limits. Negative ulnar variance. The joint spaces are well-maintained. Overlying artifact. IMPRESSION: No acute radiographic abnormality. Signed by: Dr. Lamont Potts M.D. on 08/21/2018 1:12 PM
--- NOTE | 2018-08-21 13:17 | Diagnostic Imaging Report ---
CT C-SPINE W/O - HOPD HISTORY: Fall COMPARISON: Concurrent head CT TECHNIQUE: CT of the cervical spine without contrast. Sagittal and coronal reformations were created. One or more of the following dose reduction techniques were used: Automated exposure control, adjustment of the mA and/or kV according to patient size, and/or utilization of iterative reconstruction technique. FINDINGS: Cervical lordosis is straightened. There is no scoliosis or subluxation. No fractures, compression deformity, or destructive osseous lesions are seen. The craniocervical junction is intact. No gross spinal canal masses are seen. The paravertebral and paraspinal soft tissues are unremarkable. Mild multilevel spondylosis is most prominent at C5-C6. There is mild scarring in the lung apices. Minimal scattered paranasal sinus mucosal thickening is present. IMPRESSION: No acute osseous abnormalities. Mild multilevel spondylosis, most prominent at C5-C6. Signed by: Dr. Loco Riggins M.D. on 08/21/2018 1:14 PM
--- NOTE | 2018-08-21 13:22 | Diagnostic Imaging Report ---
CT MAX/FAC.PARANASAL SINUS WO HISTORY: Fall COMPARISON: Concurrent head and cervical spine CT TECHNIQUE: Axial CT images through the face were obtained without contrast. Coronal/sagittal reformations were created. One or more of the following dose reduction techniques were used: Automated exposure control, adjustment of the mA and/or kV according to patient size, and/or utilization of iterative reconstruction technique. Streak artifacts obscure some details. DISCUSSION: There is mild subcutaneous edema in the left mental/submental region. No acute fracture is seen. No destructive osseous lesions are seen. The orbits are intact. Intraorbital contents are grossly unremarkable. Minimal scattered paranasal sinus mucosal thickening is present. IMPRESSION: No acute osseous abnormality. Signed by: Dr. Loco Riggins M.D. on 08/21/2018 1:19 PM
[2018-08-22] MEDS ORDERED: BACITRACIN ZINC 15 GM OINT TOP SCH (09:00)
== END 2018-08-21 14:00 | disposition home or self-care (01) ==
LOC: FSED 11:42
DX: S06.0X0A Concussion without loss of consciousness, initial encounter (principal); S00.81XA Abrasion of other part of head, initial encounter; S60.511A Abrasion of right hand, initial encounter; R11.0 Nausea; W01.0XXA Fall on same level from slipping, tripping and stumbling without subsequent striking against object, initial encounter; Y92.008 Other place in unspecified non-institutional (private) residence as the place of occurrence of the external cause; I10 Essential (primary) hypertension; N80.9 Endometriosis, unspecified
CPT/HCPCS: 70450; 70486; 72125; 99284